=== PATIENT | male | born 2000 ===

== ENCOUNTER → 2023-08-19 11:35 | Outpatient (REF) | payer BC, SELFPAY | LOC: MRI 3T 11:35 | PROVIDERS: ATTENDING PHYSICIAN Physician Assistant; FAMILY PHYSICIAN Family Medicine | DX: S83.511A Sprain of anterior cruciate ligament of right knee, initial encounter (principal); S83.411A Sprain of medial collateral ligament of right knee, initial encounter | CPT/HCPCS: 73721 ==